=== PATIENT | male | born 1945 | race Caucasian/White ===

== ENCOUNTER 2016-07-29 08:52 | Outpatient (CLI) | payer MEDICARE | END 2016-07-29 08:53 | disposition home or self-care (01) | DX: M10.9 Gout, unspecified (principal); C61 Malignant neoplasm of prostate; E78.2 Mixed hyperlipidemia; Z79.899 Other long term (current) drug therapy ==

== ENCOUNTER 2017-04-05 08:00 | Outpatient (CLI) | payer MEDICARE ==
[2017-04-05 12:44] LABS: BASOPHILS # (AUTO) 0.1 10^3/uL (0.0-0.1); BASOPHILS % (AUTO) 1.2 %; EOSINOPHILS # (AUTO) 0.8 10^3/uL (0.0-0.7); EOSINOPHILS % (AUTO) 9.1 %; HGB - HEMOGLOBIN 11.6 g/dL (14.0-18.0); LYMPHOCYTES # (AUTO) 1.3 10^3/uL (1.5-3.5); LYMPHOCYTES % (AUTO) 14.4 %; MEAN CORPUSCULAR HEMOGLOBIN 32.4 pg (27.0-31.0); MEAN CORPUSCULAR HGB CONC 33.5 g/dL (32.0-36.0); MEAN CORPUSCULAR VOLUME 96.7 fL (80.0-94.0); MEAN PLATELET VOLUME 8.2 fL (7.4-11.4); MONOCYTES # (AUTO) 0.7 10^3/uL (0.0-1.0); MONOCYTES % (AUTO) 8.1 %; NEUTROPHILS # (AUTO) 5.9 10^3/uL (1.5-6.6); NEUTROPHILS % (AUTO) 67.2 %; PLT - PLATELET COUNT 279 10^3/uL (130-450); RED BLOOD COUNT 3.57 10^6/uL (4.70-6.10); RED CELL DISTRIBUTION WIDTH 14.7 % (12.0-15.0); WHITE BLOOD COUNT 8.8 x10^3/uL (4.8-10.8)
[2017-04-05 12:57] LABS: ALBUMIN 3.9 g/dL (3.2-5.5); ALBUMIN/GLOBULIN RATIO 1.3 (1.0-2.2); BILIRUBIN,TOTAL 0.5 mg/dL (0.2-1.0); CALCIUM 8.9 mg/dL (8.5-10.3); CREATININE 2.1 mg/dL (0.6-1.2)
== END 2017-04-05 08:01 | disposition home or self-care (01) ==
LOC: LAB.R 08:00
PROVIDERS: ATTEND Internal Medicine
DX: R05 Cough (principal); J44.9 Chronic obstructive pulmonary disease, unspecified
CPT/HCPCS: 80053; 83880; 85025

== ENCOUNTER 2017-04-05 12:37 | Outpatient (CLI) | payer MEDICARE ==
--- NOTE | 2017-04-05 13:21 | XRAY Report ---
DATE OF SERVICE: 04/05/2017 TWO VIEW CHEST: CLINICAL INDICATION: Cough, COPD. COMPARISON: 01/29/2016. FINDINGS: Frontal and lateral views of the chest demonstrate an enlarged cardiac silhouette. Changes of previous cardiac surgery and pacemaker are stable. The lungs are clear. No effusion or pneumothorax is present. IMPRESSION: POSTOPERATIVE CHANGES. NO EVIDENCE OF ACUTE CARDIOPULMONARY DISEASE. TD: 04/05/2017 14:21
== END 2017-04-05 12:38 | disposition home or self-care (01) ==
LOC: DI 12:37
PROVIDERS: ATTEND Nurse Practitioner Primary Care
DX: R05 Cough (principal); J44.9 Chronic obstructive pulmonary disease, unspecified
CPT/HCPCS: 71046; 80053; 83880; 85025

== ENCOUNTER 2017-04-18 13:17 | Outpatient (CLI) | payer MEDICARE ==
[2017-04-18] MEDS ORDERED: ALBUTEROL NEB 2.5 MG/3 ML INH PRN (16:27)
== END 2017-04-18 13:18 | disposition home or self-care (01) ==
LOC: RT 13:17
PROVIDERS: ATTEND Nurse Practitioner Primary Care
DX: R05 Cough (principal); J44.9 Chronic obstructive pulmonary disease, unspecified
CPT/HCPCS: 94060; J7613

== ENCOUNTER 2018-01-11 10:43 | Emergency (ER) | payer MEDICARE ==
[2018-01-11] MEDS ORDERED: PROPOFOL 200 MG/20 ML VIAL IVP STA (11:08)
[2018-01-11] MEDS ORDERED: PROMETHAZINE INJ 12.5 MG in SODIUM CHLORIDE 0.9% 50 ML IV STA (11:08)
[2018-01-11] MEDS ORDERED: MORPHINE 2 MG/ML CARPUJECT IVP STA (11:08)
--- NOTE | 2018-01-11 11:11 | ED Physician Documentation ---
History of Present Illness - Stated complaint Stated Complaint: SOA - Chief complaint Chief Complaint: Cardiac - Additonal information Additional information: hx from pt 72 male hx congentital cardiac dzz - coract and three atria - s/p surgery at [facility] has PPM /AICD but not set to def until 195 has had rapid palp since last ngith hx same knows he needs cardiovert no CP or SOA so stayed NPO overnight and arrives today for cardioversion no CP no SOA no leg swelling no recent med changes no stimulants was hypotensive on first BP now 111 which states is his baseline Review of Systems Constitutional: denies: Fever Cardiac: reports: Palpitations. denies: Chest pain / pressure Respiratory: denies: Dyspnea, Cough GI: denies: Abdominal Pain, Nausea, Vomiting Musculoskeletal: denies: Neck pain, Back pain, Extremity swelling Immunocompromised: denies: Immunocompromised PD PAST MEDICAL HISTORY - Past Medical History Cardiovascular: Congestive heart failure, Atrial fibrillation, Arrhythmia Respiratory: COPD : Other HEENT: None Psych: None Musculoskeletal: None - Past Surgical History Past Surgical History: Yes Ortho: Other Cardiovascular: Pacemaker, Other - Present Medications Home Medications: Ambulatory Orders Medication Instructions Recorded Confirmed Allopurinol 1 tab PO DAILY 01/29/16 01/11/18 Carvedilol [Coreg] 1 tab PO DAILY 01/29/16 01/11/18 Dofetilide [Tikosyn] 1 cap PO BID 01/29/16 01/11/18 Esomeprazole Magnesium [Nexium] 1 cap PO DAILY 01/29/16 01/11/18 Furosemide [Lasix] 1 tab PO QID 01/29/16 01/11/18 [place]-3/Dha/Epa/Fish Oil [Fish Oil 1 cap PO BID 01/29/16 01/11/18 1,000 mg Softgel] Tamsulosin [Flomax] 1 cap PO DAILY 01/29/16 01/11/18 Apixaban [Eliquis] 5 mg 01/11/18 Ascorbic Acid 500 mg PO 01/11/18 Aspirin [Aspirin EC] 81 mg PO 01/11/18 Candesartan Cilexetil 16 mg PO 01/11/18 Cholecalciferol (Vitamin D3) 1,000 unit PO 01/11/18 [Vitamin D3] Famotidine 10 mg PO 01/11/18 Spironolactone 25 mg PO 01/11/18 Ubidecarenone [Co Q-10] 100 mg PO 01/11/18 - Allergies Allergies/Adverse Reactions: Allergies Allergy/AdvReac Type Severity Reaction Status Date / Time No Known Drug Allergies Allergy Verified 01/11/18 10:51 - Social History Does the pt smoke?: No Smoking Status: Never smoker Does the pt drink ETOH?: No Does the pt have substance abuse?: No - Immunizations Immunizations are current?: Yes - POLST Patient has POLST: No PD ED PE NORMAL - Vitals Vital signs reviewed: Yes - General General: Alert and oriented X 3, No acute distress - Cardiac Cardiac: Other (PPM left upper chest). No: RRR (rapid) - Respiratory Respiratory: No respiratory distress, Clear bilaterally - Abdomen Abdomen: Soft, Non tender - Derm Derm: Normal color - Extremities Extremities: No tenderness to palpate, Normal ROM s pain, No calf tenderness / cord - Neuro Neuro: Alert and oriented X 3 Results - Vitals Vitals: Vital Signs - 24 hr 01/11/18 01/11/18 01/11/18 10:49 11:01 11:20 Temperature 36.2 C L Heart Rate 154 H 154 H 72 Respiratory 17 23 18 Rate Blood Pressure 96/71 111/88 H 109/68 O2 Saturation 99 99 97 01/11/18 01/11/18 01/11/18 11:24 11:32 11:36 Temperature Heart Rate 140 H 139 H 106 H Respiratory 17 16 20 Rate Blood Pressure 124/101 H 90/60 87/60 L O2 Saturation 94 93 97 01/11/18 01/11/18 01/11/18 11:41 11:49 12:30 Temperature Heart Rate 140 H 70 77 Respiratory 20 14 22 Rate Blood Pressure 89/64 L 106/68 105/69 O2 Saturation 94 98 100 01/11/18 01/11/18 01/11/18 12:45 13:00 13:31 Temperature Heart Rate 140 H 79 108 H Respiratory 21 20 17 Rate Blood Pressure 96/59 L 110/66 90/75 O2 Saturation 100 98 98 01/11/18 01/11/18 01/11/18 13:37 13:45 13:47 Temperature Heart Rate 135 H 78 142 H Respiratory 14 14 14 Rate Blood Pressure 109/75 84/71 L 104/75 O2 Saturation 96 99 97 1001/11/18 01/11/18 14:05 14:45 15:49 Temperature Heart Rate 82 83 92 Respiratory 15 18 19 Rate Blood Pressure 114/77 124/106 H 118/101 H O2 Saturation 98 95 98 01/11/18 01/11/18 16:44 17:33 Temperature Heart Rate 85 77 Respiratory 15 16 Rate Blood Pressure 110/60 124/79 O2 Saturation 99 98 Oxygen O2 Source Room air - EKG (time done) 1049 Rate: Rate (enter#) (153) Other comments: Other comments (wide complex rapid reg tachycardia) - Labs Labs: Laboratory Tests 01/11/18 01/11/18 01/11/18 11:00 11:00 11:00 WBC 7.8 RBC 3.83 L Hgb 12.6 L Hct 37.1 L MCV 96.9 H MCH 32.9 H MCHC 33.9 RDW 14.3 Plt Count 289 MPV 8.0 Neut # (Auto) 5.8 Lymph # (Auto) 1.2 L Cocke # (Auto) 0.6 Eos # (Auto) 0.1 Baso # (Auto) 0.1 Absolute Nucleated RBC 0.01 Nucleated RBC % 0.1 Sodium 136 Potassium 4.4 Chloride 98 L Carbon Dioxide 26 Anion Gap 12.0 BUN 50 H Creatinine 1.7 H Estimated GFR (MDRD) 40 L Glucose 112 H Calcium 9.0 Total Bilirubin 0.9 AST 22 ALT 24 Alkaline Phosphatase 99 Troponin I < 0.04 Total Protein 6.9 Albumin 4.1 Globulin 2.8 Albumin/Globulin Ratio 1.5 Lipase 30 Procedures - Procedural sedation Sedation prep: Informed consent, Time out completed, Last meal, PE performed, AHA 3 - severe disease, IV O2 monitor, ET CO2 monitor, RT present Sedation medications: morphine, propofol Patient status during sedation: Unresponsive, Respiratory depression (slight). No: Hypoxia, Needed resp assistance (just tactlie stim) Sedation recovery: Recovered uneventfully, Other (only gave 40 of propofiol - next time consider 25-30) - Cardioversion 1120 Time of attempt: 11:20 Indication: Tachyarrhythmia, Hypotension Risks, benefits, alternatives explained to: Pt Prep: IV, O2, teletypesetter monitor, Pulse ox, Airway equip Meds: Morphine, Propofol CS via: Pads, AP approach Sync: Biphasic, 100j Post cardioversion rhythm: Other (paced at 80) PD MEDICAL DECISION MAKING - ED course ED course: from what I can determine from pt and his hx he likely has a atrial sens V PPM and has episdoes of a fib RVR causing a wide complex tachycardia in any case he is unstable with low BP so was cardioverted cardioversion was succ on first try but pt subsequently was int paced at 80 and back into wide complex tachycardia - continues to cycle back and dofrth every few minutes QT was nl after propofol will 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 malfunction spoke to cardio Dr Larkin again and sent rhythm strips and he will accept pt in transfer pt went home to get his 6PM dose of tykosen (non formulary) and coreg - he knows not to take eliquis or asa, other home meds not essential at this time Departure - Departure Disposition: 02 Transfer Acute Care Hosp Clinical Impression: Wide-complex tachycardia Condition: Fair Discharge Date/Time: 01/11/18 17:57
[2018-01-11 11:12] LABS: BASOPHILS # (AUTO) 0.1 10^3/uL (0.0-0.1); BASOPHILS % (AUTO) 0.9 %; EOSINOPHILS # (AUTO) 0.1 10^3/uL (0.0-0.7); EOSINOPHILS % (AUTO) 1.3 %; HGB - HEMOGLOBIN 12.6 g/dL (14.0-18.0); LYMPHOCYTES # (AUTO) 1.2 10^3/uL (1.5-3.5); LYMPHOCYTES % (AUTO) 15.4 %; MEAN CORPUSCULAR HEMOGLOBIN 32.9 pg (27.0-31.0); MEAN CORPUSCULAR HGB CONC 33.9 g/dL (32.0-36.0); MEAN CORPUSCULAR VOLUME 96.9 fL (80.0-94.0); MONOCYTES # (AUTO) 0.6 10^3/uL (0.0-1.0); MONOCYTES % (AUTO) 7.9 %; NEUTROPHILS # (AUTO) 5.8 10^3/uL (1.5-6.6); NEUTROPHILS % (AUTO) 74.5 %; PLT - PLATELET COUNT 289 10^3/uL (130-450); RED BLOOD COUNT 3.83 10^6/uL (4.70-6.10); RED CELL DISTRIBUTION WIDTH 14.3 % (12.0-15.0); WHITE BLOOD COUNT 7.8 x10^3/uL (4.8-10.8)
[2018-01-11 11:24] LABS: ALBUMIN 4.1 g/dL (3.2-5.5); ALBUMIN/GLOBULIN RATIO 1.5 (1.0-2.2); BILIRUBIN,TOTAL 0.9 mg/dL (0.2-1.0); CREATININE 1.7 mg/dL (0.6-1.2); TOTAL PROTEIN 6.9 g/dL (6.7-8.2)
[2018-01-11] MEDS ORDERED: METOPROLOL 5 MG/5 ML VIAL IVP STA (13:11)
[2018-01-11] MEDS ORDERED: SODIUM CHLORIDE 0.9% 1,000 ML IV ONE ×2 (15:12→16:18)
[2018-01-11 17:33] VITALS: BP 124/79
== END 2018-01-11 17:57 | disposition short-term general hospital (02) ==
LOC: ED 10:43
DX: R00.0 Tachycardia, unspecified (principal); I50.9 Heart failure, unspecified; I48.91 Unspecified atrial fibrillation; Z95.0 Presence of cardiac pacemaker; J44.9 Chronic obstructive pulmonary disease, unspecified
CPT/HCPCS: 36415; 80053; 83690; 84484; 85025; 92960; 93005; 94770; 96365; 96375; 99284; 99285; J7040

== ENCOUNTER 2018-01-11 17:55 | Outpatient (CLI) | payer MEDICARE | END 2018-01-11 17:56 | disposition short-term general hospital (02) | LOC: EMS 17:55 | PROVIDERS: ATTEND Surgery | DX: R09.89 Other specified symptoms and signs involving the circulatory and respiratory systems (principal) | CPT/HCPCS: A0170; A0425; A0427 ==

== ENCOUNTER 2018-02-14 08:45 | Outpatient (CLI) | payer MEDICARE ==
[2018-02-14 09:52] LABS: CHOL/HDL RATIO 3.4 (<5.0); CHOLESTEROL 228 mg/dL; HDL CHOLESTEROL 67 mg/dL; LDL CHOLESTEROL,CALCULATED 149 mg/dL; LDL/HDL RATIO 2.2 (<3.6); URIC ACID 7.1 mg/dL (2.6-7.2); VLDL CHOLESTEROL 12 mg/dL
== END 2018-02-14 08:46 | disposition home or self-care (01) ==
LOC: LAB 08:45
PROVIDERS: ATTEND Internal Medicine
DX: C61 Malignant neoplasm of prostate (principal); E78.5 Hyperlipidemia, unspecified; N18.9 Chronic kidney disease, unspecified; I48.91 Unspecified atrial fibrillation; Z12.5 Encounter for screening for malignant neoplasm of prostate; M10.9 Gout, unspecified
CPT/HCPCS: 36415; 80061; 84443; 84550; G0103; 83721; 84153

== ENCOUNTER 2018-02-26 08:56 | Outpatient (CLI) | payer MEDICARE ==
--- NOTE | 2018-02-26 11:23 | XRAY Report ---
Reason: LOW BACK PAIN Procedure Date: 02/26/2018 Accession Number: [id number] / [id number] Procedure: XR - Lumbar Spine Complete CPT Code: FULL RESULT: EXAM: LUMBOSACRAL SPINE RADIOGRAPHY EXAM DATE: 02/26/2018 09:27 AM. CLINICAL HISTORY: Low back pain. COMPARISONS: None. TECHNIQUE: 5 views. FINDINGS: Alignment: There is a levoconvex scoliosis centered about L2. No anteroposterior listhesis. Bones: Five ael-gqe-nljpodk lumbar vertebral bodies are present. No fractures or bone lesions. Disks: There is asymmetric loss of disk space height which is severe at L1-L2 and L2-L3 in the region of scoliosis. Facets: Facet degenerative changes are moderate to severe at L5. Sacroiliac Joints: Unremarkable. Soft Tissues: Normal. The visualized bowel gas pattern is normal. IMPRESSION: Degenerative scoliosis as described. RADIA
--- NOTE | 2018-02-26 11:44 | XRAY Report ---
Reason: LOW BACK PAIN Procedure Date: 02/26/2018 Accession Number: [id number] / [id number] Procedure: XR - Pelvis 1 View CPT Code: FULL RESULT: EXAM: PELVIS RADIOGRAPHY EXAM DATE: 02/26/2018 09:27 AM. CLINICAL HISTORY: Low back pain. COMPARISON: None. TECHNIQUE: 1 view. FINDINGS: Bones: Degenerative changes of the lumbar spine are only partially imaged.. No fracture or bone lesion. Joints: There is hip joint space narrowing right greater than left, approximately moderate in severity. The pubis symphysis, and sacroiliac joints are preserved. No subluxation. Soft Tissues: Normal. No soft tissue swelling. IMPRESSION: Degenerative joint disease of the hips. RADIA
== END 2018-02-26 08:57 | disposition home or self-care (01) ==
LOC: DI 08:56
PROVIDERS: ATTEND Internal Medicine
DX: M41.87 Other forms of scoliosis, lumbosacral region (principal); M16.0 Bilateral primary osteoarthritis of hip
CPT/HCPCS: 72110; 72170

== ENCOUNTER 2018-09-04 08:30 | Outpatient (CLI) | payer MEDICARE ==
[2018-09-04 09:02] LABS: ALBUMIN 3.9 g/dL (3.2-5.5); ALBUMIN/GLOBULIN RATIO 1.3 (1.0-2.2); BILIRUBIN,TOTAL 0.8 mg/dL (0.2-1.0); CREATININE 1.8 mg/dL (0.6-1.2); TOTAL PROTEIN 6.9 g/dL (6.7-8.2); URIC ACID 6.5 mg/dL (2.6-7.2)
== END 2018-09-04 08:31 | disposition home or self-care (01) ==
LOC: LAB 08:30
PROVIDERS: ATTEND Nurse Practitioner
DX: N18.9 Chronic kidney disease, unspecified (principal); I50.9 Heart failure, unspecified; M10.9 Gout, unspecified; C61 Malignant neoplasm of prostate
CPT/HCPCS: 36415; 80053; 84153; 84550

== ENCOUNTER 2018-10-31 09:59 | Outpatient (CLI) | payer MEDICARE ==
--- NOTE | 2018-10-31 11:31 | Mammography Report ---
Reason: BREAST MASS Procedure Date: 10/31/2018 Accession Number: [id number] / [id number] Procedure: ISMAEL - Diagnostic Dig Bilat CPT Code: FULL RESULT: EXAM: Diagnostic Dig Bilat DATE: 10/31/2018 11:04 AM CLINICAL HISTORY: Palpable right breast mass. TECHNIQUE: (B) - Bilateral CC and MLO views were obtained. COMPARISON: None PARENCHYMAL PATTERN: (A) - The breast(s) demonstrate(s) scattered fibroglandular densities. FINDINGS: There are coarse typically benign calcifications. A pacemaker partially overlies the left axilla. Asymmetrically present in the right breast is normal-appearing glandular parenchyma with no architectural distortion, no microcalcifications and no discrete mass. This was evaluated in detail with 3-D mammography. There are no suspicious masses, calcifications, or areas of distortion. IMPRESSION: Benign findings. BI-RADS category 2. RECOMMENDATION: (CLIN) - Clinical follow-up for symptoms is recommended. BI-RADS CATEGORY: (2) - Benign Findings. STANDARD QUALIFYING STATEMENTS: 1. This examination was not reviewed with the aid of Computer-Aided Detection (CAD). 2. A negative or benign imaging report should not preclude biopsy if clinically suspicious findings are present. 3. Dense breasts may obscure an underlying neoplasm. 4. This examination was reviewed with the aid of 3D breast imaging (tomosynthesis).
== END 2018-10-31 10:00 | disposition home or self-care (01) ==
LOC: DI 09:59
PROVIDERS: ATTEND Family Medicine
DX: N63.10 Unspecified lump in the right breast, unspecified quadrant (principal); Z80.3 Family history of malignant neoplasm of breast
CPT/HCPCS: 77066

== ENCOUNTER 2019-04-26 10:31 | Outpatient (CLI) | payer MEDICARE ==
[2019-04-26 11:34] LABS: CREATININE 2.3 mg/dL (0.6-1.2); URIC ACID 5.4 mg/dL (2.6-7.2)
== END 2019-04-26 10:32 | disposition home or self-care (01) ==
LOC: LAB 10:31
PROVIDERS: ATTEND Family Medicine
DX: M10.9 Gout, unspecified (principal)
CPT/HCPCS: 36415; 80048; 84550

== ENCOUNTER 2019-05-09 11:22 | Outpatient (CLI) | payer MEDICARE ==
[2019-05-09 11:54] LABS: CALCIUM 8.8 mg/dL (8.5-10.3); CREATININE 1.9 mg/dL (0.6-1.2)
== END 2019-05-09 11:23 | disposition home or self-care (01) ==
LOC: LAB 11:22
PROVIDERS: ATTEND Family Medicine
DX: N18.9 Chronic kidney disease, unspecified (principal); M10.9 Gout, unspecified
CPT/HCPCS: 36415; 80048

== ENCOUNTER 2019-12-12 11:15 | Outpatient (CLI) | payer MEDICARE ==
[2019-12-12 11:40] LABS: BASOPHILS # (AUTO) 0.1 10^3/uL (0.0-0.1); BASOPHILS % (AUTO) 0.8 %; EOSINOPHILS # (AUTO) 0.2 10^3/uL (0.0-0.7); EOSINOPHILS % (AUTO) 2.1 %; HGB - HEMOGLOBIN 11.8 g/dL (14.0-18.0); LYMPHOCYTES # (AUTO) 1.4 10^3/uL (1.5-3.5); MEAN CORPUSCULAR HEMOGLOBIN 31.6 pg (27.0-31.0); MEAN CORPUSCULAR HGB CONC 31.9 g/dL (32.0-36.0); MEAN CORPUSCULAR VOLUME 98.9 fL (80.0-94.0); MEAN PLATELET VOLUME 9.6 fL (7.4-11.4); MONOCYTES # (AUTO) 0.6 10^3/uL (0.0-1.0); MONOCYTES % (AUTO) 8.3 %; NEUTROPHILS # (AUTO) 5.1 10^3/uL (1.5-6.6); NEUTROPHILS % (AUTO) 69.5 %; PLT - PLATELET COUNT 276 10^3/uL (130-450); RED BLOOD COUNT 3.74 10^6/uL (4.70-6.10); RED CELL DISTRIBUTION WIDTH 12.3 % (12.0-15.0); WHITE BLOOD COUNT 7.3 x10^3/uL (4.8-10.8)
[2019-12-12 12:13] LABS: ALBUMIN 3.9 g/dL (3.2-5.5); ALBUMIN/GLOBULIN RATIO 1.4 (1.0-2.2); ALKALINE PHOSPHATASE 94 IU/L (42-121); ALT ALANINE AMINOTRANSFERASE 20 IU/L (10-60); AST ASPARTATE AMINOTRANSFERASE 16 IU/L (10-42); BILIRUBIN,TOTAL 0.8 mg/dL (0.2-1.0); BUN - BLOOD UREA NITROGEN 54 mg/dL (6-20); CALCIUM 8.8 mg/dL (8.5-10.3); CARBON DIOXIDE - CO2 28 mmol/L (21-32); CHLORIDE 103 mmol/L (101-111); CHOL/HDL RATIO 3.3 (<5.0); CHOLESTEROL 176 mg/dL; GLUCOSE 98 mg/dL (70-100); HDL CHOLESTEROL 54 mg/dL; LDL CHOLESTEROL,CALCULATED 110 mg/dL; SODIUM 141 mmol/L (135-145); TOTAL PROTEIN 6.7 g/dL (6.7-8.2); VLDL CHOLESTEROL 12 mg/dL
== END 2019-12-12 11:16 | disposition home or self-care (01) ==
LOC: LAB 11:15
PROVIDERS: ATTEND Internal Medicine Cardiovascular Disease
DX: I27.20 Pulmonary hypertension, unspecified (principal); I48.0 Paroxysmal atrial fibrillation; N18.3 Chronic kidney disease, stage 3 (moderate); I42.9 Cardiomyopathy, unspecified; I12.9 Hypertensive chronic kidney disease with stage 1 through stage 4 chronic kidney disease, or unspecified chronic kidney disease
CPT/HCPCS: 36415; 80053; 80061; 84443; 85025; G0103; 83721; 84153

== ENCOUNTER 2022-06-13 08:14 | Outpatient (CLI) | payer MEDICARE ==
[2022-06-13 08:35] LABS: CALCIUM 9.2 mg/dL (8.5-10.3); CREATININE 1.9 mg/dL (0.6-1.2); POTASSIUM 4.1 mmol/L (3.5-5.0)
== END 2022-06-13 08:15 | disposition home or self-care (01) ==
LOC: LAB 08:14
PROVIDERS: ATTEND Internal Medicine Cardiovascular Disease
DX: I50.20 Unspecified systolic (congestive) heart failure (principal); N18.32 Chronic kidney disease, stage 3b
CPT/HCPCS: 36415; 80048

== ENCOUNTER 2022-08-02 15:40 | Outpatient (CLI) | payer MEDICARE | END 2022-08-02 15:41 | disposition home or self-care (01) | LOC: LAB 15:40 | PROVIDERS: ATTEND Student in an Organized Health Care Education/Training Program | DX: Z85.46 Personal history of malignant neoplasm of prostate (principal) | CPT/HCPCS: 36415; 84153 ==

== ENCOUNTER 2022-08-11 21:45 | Outpatient (CLI) | payer MEDICARE ==
--- NOTE | 2022-08-16 11:49 | Ultrasound Report ---
PROCEDURE: Retroperitoneal INDICATIONS: RENAL MASS TECHNIQUE: Real-time scanning was performed of the retroperitoneal organs, with image documentation. COMPARISON: None. FINDINGS: Kidneys: Right kidney is slightly smaller than left. Right kidney measures 9.7 cm long; left kidney measures 12.2 cm long. Right renal cortical thickness is 0.9 cm; left renal cortical thickness is 1. 2 cm. No solid masses, hydronephrosis, or nephrolithiasis. Bilateral renal cystic lesions, containi ng thin internal septations; Bosniak 2 equivalent. Bladder: Pre-void bladder volume is 228 mL. Post-void residual is 44 mL. Pre-void images demonstra te no intraluminal masses or stones. On pre-void images, both ureteral jets are noted with color Dop pler interrogation. (Of note, ureteral jets may not be detectable in up to 25% of cases due to insuf ficient differences in specific gravity between ureteral and bladder urine). Miscellaneous: No free abdominal fluid. IMPRESSION: No solid renal mass identified. Note: No comparison at time of dictation. If prior becomes available, an addendum can be made to this report. Otherwise, consider CT or MRI (renal mass protocol) to exclu de mass reported on history. Bilateral Bosniak 2 equivalent renal cysts, which require no further follow-up. Reviewed by: Jameson Nevarez on 08/16/2022 10:47 AM ANGY Approved by: Jameson Nevarez on 08/16/2022 10:47 AM ANGY Station ID: [id number]
== END 2022-08-11 21:46 | disposition home or self-care (01) ==
LOC: DI 21:45
PROVIDERS: ATTEND Student in an Organized Health Care Education/Training Program
DX: N28.1 Cyst of kidney, acquired (principal)

== ENCOUNTER 2022-09-06 13:16 | Outpatient (CLI) | payer MEDICARE ==
[2022-09-06 13:48] LABS: CALCIUM 9.1 mg/dL (8.5-10.3); CREATININE 2.4 mg/dL (0.6-1.2); POTASSIUM 4.4 mmol/L (3.5-5.0)
== END 2022-09-06 13:17 | disposition home or self-care (01) ==
LOC: LAB 13:16
PROVIDERS: ATTEND Internal Medicine Cardiovascular Disease
DX: I50.22 Chronic systolic (congestive) heart failure (principal)
CPT/HCPCS: 36415; 80048

== ENCOUNTER 2022-09-09 14:41 | Outpatient (CLI) | payer MEDICARE ==
[2022-09-09 14:57] LABS: CALCIUM 8.9 mg/dL (8.5-10.3); CREATININE 1.9 mg/dL (0.6-1.2); POTASSIUM 4.2 mmol/L (3.5-5.0)
== END 2022-09-09 14:42 | disposition home or self-care (01) ==
LOC: LAB 14:41
PROVIDERS: ATTEND Internal Medicine Cardiovascular Disease
DX: I50.22 Chronic systolic (congestive) heart failure (principal)
CPT/HCPCS: 36415; 80048